=== PATIENT | male | born 1995 | race Caucasian/White ===

== ENCOUNTER 2024-10-26 13:40 | Emergency (ER) | payer SELFPAY ==
[2024-10-26 13:41] VITALS: BP 130/81; PULSE 83; RESP 16; TEMP 36.7; O2SAT 99; BMI 22.7
--- NOTE | 2024-10-26 16:20 | RAD_ITS ---
INDICATION: pain with squeeze EXAMINATION/TECHNIQUE: X-RAY - RIGHT XR Hand Min 3 Views COMPARISON: None. FINDINGS: No acute fracture or malalignment. No blastic or lytic lesions. No degenerative changes are seen. The soft tissues are unremarkable. RAD/Hand Min 3 Views IMPRESSION: No acute radiographic abnormalities. Electronically Signed: Ryan Smith MD at 16:40 EST ,
--- NOTE | 2024-10-26 16:35 | EDS_ITS ---
HPI History of Present Illness Chief Complaint: Upper Extremity Injury Narrative Narrative: Patient is a 29-year-old male with no known significant past medical history who presents to the emergency department with chief complaint of right hand pain. Patient states that about a month ago he noted a bump on the back of his right hand. 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 He states he is not taking anything for pain at home. Patient denies any injury to the hand. Patient states that he does smoke denies any alcohol use and denies any drug use. [facility] Medical History Cancer Home Medications ?Medication ?Instructions ?Recorded ?Last Taken ?Type NK 12/22/21 Unknown History Allergy/AdvReac Type Severity Reaction Status Date / Time No Known Allergies Allergy Verified 10/26/24 13:40 Social History Smoking Status: Unknown if ever smoked ROS ROS ED ROS Narrative Constitutional: Denies any fevers, chills, weight loss Neurological: Denies numbness, weakness, tingling Musculoskeletal: Complains of right hand pain as noted above with a bump on the back of the right hand as noted above Skin: Denies rashes or lesions EXAM Physical Exam Narrative Exam Narrative: General: Patient lying in bed rest comfortably did not appear to be in acute distress Head: Atraumatic, normocephalic Eyes: PERRL bilaterally, EOMI bilateral, no conjunctival injection noted Cardiovascular: Regular rate Extremities: +5/5 strength noted in the bilateral upper lower extremities, radial pulses +2/4 in the bilateral extremities, patient was able to give me the okay sign thumbs up and oppose his thumb to his pinky bilaterally without any difficulty Neurological: Patient has sensation grossly intact in the median ulnar radial nerve distributions bilaterally, patient following commands knew that he was at [facility] year is 2024 Skin: Warm, dry, intact, patient has a small mobile cystlike structure on the dorsal aspect of his right hand no tenderness to palpation Const Vital Signs: 10/26/24 13:41 Temperature 98.1 F Temperature Source Temporal Pulse Rate 83 Respiratory Rate 16 Blood Pressure 130/81 H Blood Pressure Mean 97 Pulse Ox 99 Oxygen Delivery Method Room Air MDM MDM MDM Narrative Medical decision making narrative: Patient is a 29-year-old male who presents to the emergency department chief complaint of right hand pain with a likely cyst. On the differential diagnose includes but not limited to sebaceous cyst, lipoma, fracture. Once workup is obtained reviewed he will be reevaluated. Patient's x-ray of his hand was reviewed by myself and by radiology showed no acute radiographic abnormalities. Did discuss results with the patient he was advised to use Tylenol and ibuprofen [id number] for pain control when he is having flareup. He is advised to follow-up with orthopedic surgery which she was referred to. He is encouraged to follow-up with primary care physician as well which she was given a number to follow-up with them. He is encouraged to return with worsening symptoms or concerns. He is agreeable this plan all questions answered discharged home in stable condition. Discharge Plan Triage Chief Complaint: Upper Extremity Injury ED Provider: Estevan Clay Dx/Rx/DC Orders Clinical Impression: Cyst of right hand Prescriptions: No Action NK Primary Care Provider: NOT,DEFINED Referrals: NOT,DEFINED [Primary Care Provider] - Sarkis Pedro DO [Med Staff - Active Staff] - Niyah Thakkar DO [[facility]] - Activity Restrictions/Additional Instructions: Follow-up with a primary care physician that you referred to as well as orthopedic surgeon. Return with worsening symptoms or concerns. Use Tylenol and ibuprofen for pain control. Print Language: Polish Disposition Disposition: Home, Self Care
[2024-10-26 17:21] VITALS: BP 121/76; PULSE 71; RESP 12; TEMP 36.6; O2SAT 98
== END 2024-10-26 17:24 | disposition home or self-care (01) ==
PROVIDERS: Emergency Provider Emergency Medicine; Referring Provider Emergency Medicine; Visit Provider Emergency Medicine
DX: M67.441 Ganglion, right hand (principal)
CPT/HCPCS: 73130; 99282